=== PATIENT | female | born 1950 | race American Indian/Alaskan Native ===

== ENCOUNTER 2019-02-11 12:22 | Outpatient (CLI) | payer MEDICARE, OTHER ==
[2019-02-11 12:44] LABS: Hematocrit 40.2 % (30.3-42.9); Hemoglobin 13.1 gm/dl (10.1-14.3); Mean Corpuscular HGB Conc 33 % (30-34); Mean Corpuscular Volume 82 fl (79-97); Platelet Count 313 K/mm3 (140-440); Red Blood Count 4.88 M/mm3 (3.65-5.03); Red Cell Distribution Width 14.5 % (13.2-15.2)
[2019-02-11 13:02] LABS: Erythrocyte Sedimentation Rate 28 mm/Hr (0-20)
[2019-02-11 13:13] LABS: Alanine Aminotransferase 9 units/L (7-56); Albumin 4.2 g/dL (3.9-5); BUN/Creatinine Ratio 18; Blood Urea Nitrogen 14 mg/dL (7-17); Calcium 9.6 mg/dL (8.4-10.2); HDL Cholesterol 60 mg/dL (40-59); Hemolysis Index 4; LDL Cholesterol,Direct 201 mg/dL (50-130)
== END 2019-02-11 12:23 | disposition home or self-care (01) ==
LOC: LAB 12:22
PROVIDERS: ATTEND Specialist
DX: I63.312 Cerebral infarction due to thrombosis of left middle cerebral artery (principal); E05.90 Thyrotoxicosis, unspecified without thyrotoxic crisis or storm; Z88.0 Allergy status to penicillin; Z88.6 Allergy status to analgesic agent
CPT/HCPCS: 36415; 80053; 80061; 82306; 84436; 84443; 84479; 84480; 85027; 85652; 86592

== ENCOUNTER 2019-11-27 10:01 | Outpatient (CLI) | payer MEDICARE, OTHER ==
--- NOTE | 2019-11-27 10:50 | Ultrasound Report ---
LIMITED RIGHT BREAST ULTRASOUND HISTORY: Recalled for upper asymmetry. COMPARISON: 11/19/2019 and 11/10/2019 mammograms FINDINGS: Focused sonographic evaluation upon the upper location of the left breast demonstrates no d istinct abnormality. No mass, cyst or suspicious shadowing. IMPRESSION: A probably benign summation density of the upper right breast. Recommend 6 month follow-up right diagnostic mammogram and ultrasound if needed. BIRADS 3: Probably benign. Signer Name: Rex Vincent MD Signed: 11/27/2019 10:46 AM Workstation Name: [id number]
== END 2019-11-27 10:02 | disposition home or self-care (01) ==
LOC: SPVWC 10:01
PROVIDERS: ATTEND Surgery
DX: N63.10 Unspecified lump in the right breast, unspecified quadrant (principal)

== ENCOUNTER 2021-05-23 10:56 | Outpatient (CLI) | payer MEDICARE, OTHER ==
[2021-05-23 11:30] LABS: Alanine Aminotransferase 16 units/L (7-56); Albumin 4.3 g/dL (3.9-5); BUN/Creatinine Ratio 16; Blood Urea Nitrogen 13 mg/dL (7-17); Calcium 9.4 mg/dL (8.4-10.2); Hemolysis Index 10
== END 2021-05-23 10:57 | disposition home or self-care (01) ==
LOC: LAB 10:56
PROVIDERS: ATTEND Specialist
DX: I72.9 Aneurysm of unspecified site (principal)
CPT/HCPCS: 36415; 80053